=== PATIENT | male | born 1950 | race Two or more races ===

== ENCOUNTER 2017-03-05 07:35 | Emergency (ER) | payer MEDICARE ==
[~2017-03-05] VITALS: Ht 172.7 cm; Wt 66.7 kg
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
--- NOTE | 2017-03-05 07:58 | NUR ---
Patient does not wish to proceed with medical care recommended by Dr. Jacobs. Patient given information related to possible complications, up to and including , which could occur as a result of leaving the hospital at this time. Patient verbalizes understanding of risks involved due to leaving against medical advice. Patient has signed AMA form.
[2017-03-05 08:02] VITALS: BP 139/90
== END 2017-03-05 08:03 | disposition home or self-care (01) ==
LOC: ER 07:38
DX: R10.32 Left lower quadrant pain (principal); I10 Essential (primary) hypertension; V89.2XXA Person injured in unspecified motor-vehicle accident, traffic, initial encounter; Y93.89 Activity, other specified; Y92.488 Other paved roadways as the place of occurrence of the external cause; Y99.8 Other external cause status
CPT/HCPCS: 99283; A4606; Z7610

== ENCOUNTER 2019-12-19 23:55 | Emergency (ER) | payer MEDICARE, OTHER ==
[~2019-12-19] VITALS: Ht 172.7 cm; Wt 68.0 kg
[2019-12-20] MEDS ORDERED: ONDANSETRON 4 MG TAB.RAPDIS SL ONE
[2019-12-20] MEDS ORDERED: LIDOCAINE VISCOUS 2% UD 15 ML UDC MM ONE
[2019-12-20] MEDS ORDERED: MAG HYDROX/AL HYDROX/SIMETH 30 ML UDC PO ONE
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
[2019-12-20 00:26] LABS: BASOPHILS # (AUTO) 0.1 /CMM (0.0-0.2); MONOCYTES # (AUTO) 0.4 /CMM (0.1-1.30); WHITE BLOOD COUNT (AUTO) 4.5 K/uL (4.3-11.0)
[2019-12-20 00:29] LABS: BASOPHILS % (AUTO) 1.6 % (0.0-2.0); EOSINOPHILS % (AUTO) 1.9 % (0.0-6.0); HEMATOCRIT 37 % (39-51); LYMPHOCYTES % (AUTO) 44.7 % (20.0-44.0); MEAN CORPUSCULAR HGB CONC 33 g/dl (31.0-36.0); MEAN CORPUSCULAR VOLUME 94 fL (80-96); MONOCYTES % (AUTO) 8.7 % (2.0-12.0); NEUTROPHILS % (AUTO) 43.1 % (43.0-81.0); PLATELET COUNT (AUTO) 416 /CMM (150-450); RED BLOOD CELL COUNT(AUTO) 3.89 MIL/uL (4.5-6.0)
[2019-12-20] MEDS ORDERED: MAG HYDROX/AL HYDROX/SIMETH 30 ML UDC ONE (00:31)
[2019-12-20] MEDS ORDERED: LIDOCAINE VISCOUS 2% UD 15 ML UDC ONE (00:31)
[2019-12-20] MEDS ORDERED: ONDANSETRON 4 MG TAB.RAPDIS ONE (00:31)
[2019-12-20 01:03] LABS: ALANINE AMINOTRANSFERASE 52 U/L (12-78); ALBUMIN 4.1 g/dL (3.4-5.0); ALCOHOL, BLOOD 203 mg/dL (0-0); ALKALINE PHOSPHATASE 64 U/L (46-116); ASPARTATE AMINOTRANSFERASE 55 U/L (15-37); BILIRUBIN,DIRECT 0.1 mg/dL (0.0-0.2); BILIRUBIN,TOTAL 0.4 mg/dL (0.2-1.0); CALCIUM, SERUM 9.1 mg/dL (8.5-10.1); CARBON DIOXIDE 22 mmol/L (21-32); CHLORIDE 103 mmol/L (98-107); CREATININE 1.7 mg/dL (0.6-1.3); GLUCOSE 104 mg/dL (74-106); LIPASE 272 U/L (73-393); POTASSIUM 3.9 mmol/L (3.5-5.1); SODIUM SERUM 140 mmol/L (136-145); TOTAL PROTEIN, SERUM 8.1 g/dL (6.4-8.2); UREA NITROGEN, BLOOD 14 mg/dL (7-18)
--- NOTE | 2019-12-20 02:13 | NUR ---
PO TRIAL TOLERATED BY PT. PROVIDED WITH FOOD.
--- NOTE | 2019-12-20 04:15 | NUR ---
PT IN BED SLEEPING COMFORTABLY. NAD NOTED.
--- NOTE | 2019-12-20 06:03 | NUR ---
Patient discharged to home in stable condition. Written and verbal after care instructions given. Patient verbalizes understanding of instruction. Pt ambulatory with a steady gait. Homeless waiver sihned by pt. Food provided.
[2019-12-20 06:07] VITALS: BP 152/68
== END 2019-12-20 06:07 | disposition home or self-care (01) ==
LOC: ER 23:57
DX: K29.20 Alcoholic gastritis without bleeding (principal); F10.10 Alcohol abuse, uncomplicated; Y90.7 Blood alcohol level of 200-239 mg/100 ml; Z59.0 Homelessness; R03.0 Elevated blood-pressure reading, without diagnosis of hypertension; R07.9 Chest pain, unspecified; I44.4 Left anterior fascicular block
CPT/HCPCS: 99285; 36415; 71045; 80048; 80076; 80307; 83690; 84484 ×2; 85025; 93005; Q0162; G0480